=== PATIENT | female | born 1985 | race Caucasian/White ===

== ENCOUNTER 2017-10-04 09:28 | Emergency (ER) | payer OTHER ==
[~2017-10-04] VITALS: Ht 167.6 cm; Wt 133.0 kg
[~2017-10-04 09:28] MED LIST: HYDR-3719; PERC5TAB12 PO
[2017-10-04] MEDS ORDERED: DICY20TA11 (09:36)
[2017-10-04] MEDS ORDERED: ONDA4TAB6 (09:36)
[2017-10-04] MEDS ORDERED: NS 1,000 ML IV ONE (10:45)
[2017-10-04 11:09] LABS: BASO # 0.1 10^3/uL (0.0-0.2); BASO % 0.5 % (0.0-1.0); EOS # 0.1 10^3/uL (0.0-0.50); IMMATURE GRANULOCYTE % 0.3 % (0-0); LYMPH # 2.5 10^3/uL (1.5-4.5); LYMPH % 26.9 % (24.0-44.0); MEAN CORPUSCULAR HEMOGLOBIN 26.4 pg (27.0-33.0); MEAN CORPUSCULAR HGB CONC 34.3 g/dl (32.0-36.5); MEAN CORPUSCULAR VOLUME 76.9 fl (80.0-96.0); MONO # 0.5 10^3/uL (0.0-0.8); NEUTROPHILS # 6.2 10^3/uL (1.8-7.7); NEUTROPHILS % 66.3 % (36.0-66.0); PLATELET COUNT, AUTOMATED 337 10^3/uL (150-450); RED CELL DISTRIBUTION WIDTH 13.9 % (11.5-14.5); WHITE BLOOD COUNT 9.4 10^3/uL (4.0-10.0)
[2017-10-04 11:26] LABS: CONTROL LINE HCG INT CTR LINE PRESENT
[2017-10-04] MEDS ORDERED: ONDANSETRON 4MG/2ML VIAL (J2405) IV ONE (11:30)
[2017-10-04] MEDS ORDERED: MORPHINE 4 MG/ML 1ML SYRINGE IV ONE (11:30)
[2017-10-04 11:33] LABS: ALBUMIN 3.8 GM/DL (3.2-5.2); ALBUMIN/GLOBULIN RATIO 1.09 (1.00-1.93); ALKALINE PHOSPHATASE 65 U/L (45-117); ALT/SGPT 27 U/L (12-78); ANION GAP 7 MEQ/L (8-16); AST/SGOT 12 U/L (7-37); BILIRUBIN,DIRECT 0.1 MG/DL (0.0-0.2); BILIRUBIN,TOTAL 0.7 MG/DL (0.2-1.0); BLOOD UREA NITROGEN 7 MG/DL (7-18); CARBON DIOXIDE LEVEL 28 MEQ/L (21-32); CHLORIDE LEVEL 100 MEQ/L (98-107); CREATININE FOR GFR 0.42 MG/DL (0.55-1.02); GLOMERULAR FILTRATION RATE > 60.0 (>60); GLUCOSE, FASTING 312 MG/DL (70-105); POTASSIUM SERUM 3.5 MEQ/L (3.5-5.1); SODIUM LEVEL 135 MEQ/L (136-145); TOTAL PROTEIN 7.3 GM/DL (6.4-8.2)
--- NOTE | 2017-10-04 12:06 | REP ---
GALLBLADDER ULTRASOUND: 10/04/2017. COMPARISON: Biliary scan 09/30/2017, gallbladder ultrasound 09/28/2017, 09/27/2017. CLINICAL HISTORY: Right upper quadrant pain, known stone, reevaluate after two studies last week. FINDINGS: Sonographic evaluation of the liver shows diffuse hyperechogenicity consistent with fatty infiltration. There is hepatomegaly with a vertical diameter of the liver 20.4 cm in the midclavicular line. No biliary dilatation nor adjacent ascites. No mass or cyst. Gallbladder has a fold in the body near the fundus. There is a small non-mobile stone in that fundus. No wall thickening or pericholecystic fluid. Pancreas is partially obscured by gas shadowing. The visible portions were intact. Right kidney shows no stone or hydronephrosis, unchanged. No generalized ascites. IMPRESSION: 1. Hepatomegaly with fatty infiltration liver. No focal hepatic mass, biliary dilatation or ascites. 2. Common duct 5.7 mm without a filling defect or stone. 3. Gallbladder shows a fold in its body and fundal junction with small mobile stone in the fundus. No wall thickening, mass or pericholecystic fluid. 4. The pancreas seen only in part was grossly intact for those segments visible, gas shadows portions of it. Right kidney intact. Signed by Koko Onofre MD 10/04/2017 01:21 P
--- NOTE | 2017-10-04 12:17 | REP ---
ABDOMINAL SERIES: Four views. HISTORY: Constipation. Abdominal pain. Question obstruction. COMPARISON CHEST X-RAY: November 10, 2012. FINDINGS: Today's upright chest x-ray is normal. There is no evidence of infiltrate or free subdiaphragmatic air. Heart is not enlarged. Supine and erect views of the abdomen show scattered air-fluid levels in the colon without evidence of colonic dilation. No small bowel gas is seen. No mass, organomegaly, or pathologic calcification is seen. Psoas margins and flank stripes are intact. IMPRESSION: Air-fluid levels in the colon question enteritis. No evidence of obstruction or free air. Signed by Josiah Ghosh MD 10/04/2017 03:34 P
[2017-10-04 13:02] LABS: AMYLASE 10 U/L (25-115)
[2017-10-04] MEDS ORDERED: MIRA3350 PO (13:56)
[2017-10-04] MEDS ORDERED: METF500T13 PO (13:56)
[2017-10-04] MEDS ORDERED: NORCOTAB PO (13:56)
[2017-10-04] MEDS ORDERED: DULC10SU2 PR (13:56)
[2017-10-04] MEDS ORDERED: IBUP-1022 PO (13:56)
[2017-10-04] MEDS ORDERED: BLOOKIT20 XX (14:01)
[2017-10-04 14:06] VITALS: BP 171/98
--- NOTE | 2017-10-04 16:02 | ED PDOC ---
Post-Departure Follow-Up radiology report faxed to Keri Camacho MD Oct 04, 2017 16:02
== END 2017-10-04 14:13 | disposition home or self-care (01) ==
LOC: M ED 09:28
DX: K80.70 Calculus of gallbladder and bile duct without cholecystitis without obstruction (principal); E11.65 Type 2 diabetes mellitus with hyperglycemia; Z72.0 Tobacco use
CPT/HCPCS: 74022; 76705; 80048; 80076; 81001; 82150; 83036; 83690; 84703; 85025; 99284; J2405

== ENCOUNTER 2017-10-08 12:41 | Day surgery (SDC) | payer OTHER ==
[~2017-10-08] VITALS: Ht 170.2 cm; Wt 129.7 kg
[~2017-10-08 12:41] MED LIST changes: +BLOOKIT20 XX; +DICY20TA11; +DULC10SU2 PR; +IBUP-1022 PO; +METF500T13 PO; +MIRA3350 PO; +NORCOTAB PO; +ONDA4TAB6
[2017-10-08] MEDS ORDERED: LR 1,000 ML IV ONE (13:00)
[2017-10-08] MEDS ORDERED: HumaLOG INSULIN (NovoLOG) PER UNIT SC ONE (14:15)
[2017-10-08 14:20] LABS: CONTROL LINE UCG INT CTR LINE PRESENT
[2017-10-08] MEDS ORDERED: PERCOCET 5MG/325MG TAB As Ordered ONE (14:23)
[2017-10-08] MEDS ORDERED: PERCOCET 5MG/325MG TAB PO ONE (14:30)
[2017-10-08] MEDS ORDERED: fentaNYL 100 MCG/2 ML INJECTION (J3010) As Ordered ONE ×2 (15:50→16:33)
[2017-10-08] MEDS ORDERED: MIDAZOLAM INJ 2 MG/2 ML VIAL (J2250) As Ordered ONE (15:50)
[2017-10-08] MEDS ORDERED: BUPIVACAINE/EPIN 0.25% 30 ML VIAL As Ordered ONE (16:04)
[2017-10-08] MEDS ORDERED: DESFLURANE 240 ML INHALANT As Ordered ONE (16:40)
[2017-10-08] MEDS ORDERED: LIDOCAINE 2% INJ 100 MG/5 ML SDV (FOR ANES.) As Ordered ONE (16:57)
[2017-10-08] MEDS ORDERED: dexameTHASONE 4 MG/ML 1ML VIAL (J1100) As Ordered ONE (16:57)
[2017-10-08] MEDS ORDERED: KETOROLAC 60 MG/2 ML VIAL (J1885) As Ordered ONE (16:57)
[2017-10-08] MEDS ORDERED: GLYCOPYRROLATE INJ 0.2 MG/ML 2 ML VIAL As Ordered ONE (16:57)
[2017-10-08] MEDS ORDERED: ONDANSETRON 4MG/2ML VIAL (J2405) As Ordered ONE ×2 (16:57→17:33)
[2017-10-08] MEDS ORDERED: PROPOFOL 200 MG/20 ML VIAL As Ordered ONE (16:57)
[2017-10-08] MEDS ORDERED: ROCURONIUM BROMIDE 50 MG/5 ML VIAL/SYRINGE As Ordered ONE (16:57)
[2017-10-08] MEDS ORDERED: SUGAMMADEX SODIUM 500 MG/5 ML VIAL (BRIDION) As Ordered ONE (16:58)
[2017-10-08] MEDS ORDERED: HYDROmorphone HCL 2 MG/ML 1ML VIAL (J1170) As Ordered ONE (17:02)
[2017-10-08] MEDS ORDERED: HYDROmorphone HCL 1 MG/ML SYRINGE (J1170) IV PRN (17:45)
[2017-10-08] MEDS ORDERED: LR 1,000 ML IV SCH (17:45)
[2017-10-08] MEDS ORDERED: PERCOCET 5MG/325MG TAB PO PRN (17:45)
[2017-10-08] MEDS ORDERED: ONDANSETRON 4MG/2ML VIAL (J2405) IV PRN (17:45)
[2017-10-08] MEDS ORDERED: METOCLOPRAMIDE INJ 10MG/2ML VIAL (J2765) IV PRN (17:45)
[2017-10-08] MEDS ORDERED: NORCO, ANEXSIA 5/325MG TABLET (HYDROcodone/ACETAMINOPHEN) PO PRN (17:45)
[2017-10-08] MEDS: fentaNYL 100 MCG/2 ML INJECTION (J3010) IV PRN ×2 (17:55→18:06)
[2017-10-08 19:20] VITALS: BP 139/85
--- NOTE | 2017-10-10 09:26 | RO ---
DATE OF PROCEDURE: 10/08/2017 PREOPERATIVE DIAGNOSIS: Symptomatic cholelithiasis. POSTOPERATIVE DIAGNOSIS: Symptomatic cholelithiasis. PROCEDURE: Laparoscopic cholecystectomy. SURGEON: Dr. Estrada SUPERVISOR PROP MAKING: None. ANESTHESIA: General. ESTIMATED BLOOD LOSS: 5. COMPLICATIONS: None. INDICATIONS FOR PROCEDURE: The patient 31-year-old female who presents with a history of right upper quadrant abdominal pain for the past couple weeks, found to have symptomatic cholelithiasis. Recommendation was to proceed with laparoscopic, possible open cholecystectomy. Risks, benefits of the procedure, not limited to, but including bleeding, infection, hernia formation, damage to surrounding structures, need for further surgery were discussed in detail with the patient. Informed consent was obtained and the procedure was planned. DESCRIPTION OF PROCEDURE: The patient was brought back to operating room #6. After sufficient sedation, the abdomen was sterilely prepped and draped. Next, a time-out was done to confirm proper patient and proper procedure. Next, a stab incision was made in the left lower quadrant at Aparicio's point. Veress needle was inserted and the abdomen was insufflated to 50 mmHg. Next, a 5 mm supraumbilical incision was made. A 5 mm Optiview port was used to gain access to the abdomen. Once the abdomen was entered, Veress needle site was examined and there were no signs of any injury. 11 mm port placed subxiphoid, two 5 mm ports in the upper quadrant. The fundus of the gallbladder was grasped, elevated up towards the right shoulder, cystic duct and cystic artery were carefully dissected using blunt dissection. Once they are both clearly identified, they are both doubly clipped and cut. The gallbladder was then removed from the gallbladder fossa using electrocautery. Once the gallbladder was out, it was taken out through a 10 mm EndoCatch bag through subxiphoid port site. The upper quadrant was then examined to confirm hemostasis. The abdomen was then desufflated. Skin incision closed with #4-0 Vicryl subcuticular sutures. The abdomen was cleaned and dried. Steri-Strips, 4x4 and tape were applied, thus ending procedure.
== END 2017-10-08 19:30 | disposition home or self-care (01) ==
LOC: M SDC 12:41
PROVIDERS: ATTEND Surgery
DX: K80.20 Calculus of gallbladder without cholecystitis without obstruction (principal); E11.9 Type 2 diabetes mellitus without complications; K21.9 Gastro-esophageal reflux disease without esophagitis; F17.210 Nicotine dependence, cigarettes, uncomplicated; Z79.899 Other long term (current) drug therapy
CPT/HCPCS: 47562; 84703; 88304; J0690; J1100; J1170; J1885; J2250; J2405; J3010

== ENCOUNTER → 2017-12-21 | Outpatient (REF) | payer OTHER | LOC: M LAB REF 12:40 | DX: L72.3 Sebaceous cyst (principal) ==

== ENCOUNTER → 2018-09-23 | Outpatient (CLI) | payer OTHER ==
[2018-09-23 11:53] LABS: BASO # 0.1 10^3/uL (0.0-0.2); BASO % 0.5 % (0.0-1.0); EOS # 0.2 10^3/uL (0.0-0.50); EOS % 1.3 % (0.0-3.0); HEMATOCRIT 48.4 % (36.0-47.0); HEMOGLOBIN 16.4 g/dl (12.0-15.5); IMMATURE GRANULOCYTE % 0.3 % (0-3.0); LYMPH # 3.3 10^3/uL (1.5-4.5); LYMPH % 23.7 % (24.0-44.0); MEAN CORPUSCULAR HEMOGLOBIN 27.4 pg (27.0-33.0); MEAN CORPUSCULAR HGB CONC 33.9 g/dl (32.0-36.5); MEAN CORPUSCULAR VOLUME 80.9 fl (80.0-96.0); MONO # 0.6 10^3/uL (0.0-0.8); MONO % 4.3 % (0.0-5.0); NEUTROPHILS # 9.8 10^3/uL (1.8-7.7); NEUTROPHILS % 69.9 % (36.0-66.0); PLATELET COUNT, AUTOMATED 254 10^3/uL (150-450); RED BLOOD COUNT 5.98 10^6/uL (4.00-5.40); RED CELL DISTRIBUTION WIDTH 13.8 % (11.5-14.5); WHITE BLOOD COUNT 14.1 10^3/uL (4.0-10.0)
[2018-09-23 12:28] LABS: ESTIMATED AVERAGE GLUCOSE 249 MG/DL (60-110); HEMOGLOBIN A1c 10.3 %
[2018-09-23 13:01] LABS: CREATININE, URINE 84.5 MG/DL; MALB URINE SIEMENS 42.7 MG/L
[2018-09-23 13:04] LABS: MAU/CREAT RATIO 50.5 MCG/MG (0.0-30.0)
[2018-09-23 16:13] LABS: ALBUMIN 3.8 GM/DL (3.2-5.2); ALBUMIN/GLOBULIN RATIO 1.23 (1.00-1.93); ALKALINE PHOSPHATASE 84 U/L (45-117); ALT/SGPT 23 U/L (12-78); ANION GAP 8 MEQ/L (8-16); AST/SGOT 8 U/L (7-37); BILIRUBIN,TOTAL 0.5 MG/DL (0.2-1.0); BLOOD UREA NITROGEN 9 MG/DL (7-18); CALCIUM LEVEL 9.2 MG/DL (8.5-10.1); CARBON DIOXIDE LEVEL 29 MEQ/L (21-32); CHLORIDE LEVEL 101 MEQ/L (98-107); CHOLESTEROL LEVEL 165 MG/DL (<200); CHOLESTEROL RISK RATIO 6.875 (<5); CREATININE FOR GFR 0.51 MG/DL (0.55-1.30); GLOMERULAR FILTRATION RATE > 60.0 (>60); GLUCOSE, FASTING 362 MG/DL (70-100); HDL CHOLESTEROL 24 MG/DL (>40); LDL CHOLESTEROL 99 MG/DL (<100); NON-HDL-C 141 MG/DL; POTASSIUM SERUM 4.9 MEQ/L (3.5-5.1); SODIUM LEVEL 138 MEQ/L (136-145); TOTAL PROTEIN 6.9 GM/DL (6.4-8.2); TRIGLYCERIDES LEVEL 208 MG/DL (<150)
== END ==
LOC: M SMT 08:20
DX: E11.9 Type 2 diabetes mellitus without complications (principal)
CPT/HCPCS: 80053

== ENCOUNTER → 2019-02-16 | Outpatient (REF) | payer OTHER ==
[~2019-02-16] MED LIST changes: -BLOOKIT20 XX; +BLOOKIT21 XX
[2019-02-16 11:42] LABS: BASO # 0.1 10^3/uL (0.0-0.2); BASO % 0.3 % (0.0-1.0); EOS # 0.2 10^3/uL (0.0-0.50); EOS % 1.1 % (0.0-3.0); HEMATOCRIT 46.6 % (36.0-47.0); HEMOGLOBIN 15.9 g/dl (12.0-15.5); LYMPH # 2.8 10^3/uL (1.5-4.5); LYMPH % 18.5 % (24.0-44.0); MEAN CORPUSCULAR HEMOGLOBIN 27.9 pg (27.0-33.0); MEAN CORPUSCULAR HGB CONC 34.1 g/dl (32.0-36.5); MEAN CORPUSCULAR VOLUME 81.9 fl (80.0-96.0); MONO # 0.6 10^3/uL (0.0-0.8); NEUTROPHILS # 11.5 10^3/uL (1.8-7.7); NEUTROPHILS % 75.8 % (36.0-66.0); PLATELET COUNT, AUTOMATED 306 10^3/uL (150-450); RED BLOOD COUNT 5.69 10^6/uL (4.00-5.40); WHITE BLOOD COUNT 15.2 10^3/uL (4.0-10.0)
[2019-02-16 11:58] LABS: ALBUMIN 3.7 GM/DL (3.2-5.2); ALT/SGPT 30 U/L (12-78); BILIRUBIN,TOTAL 1.1 MG/DL (0.2-1.0); BLOOD UREA NITROGEN 12 MG/DL (7-18); CALCIUM LEVEL 8.7 MG/DL (8.5-10.1); CARBON DIOXIDE LEVEL 24 MEQ/L (21-32); CHLORIDE LEVEL 105 MEQ/L (98-107); CHOLESTEROL LEVEL 85 MG/DL (<200); CHOLESTEROL RISK RATIO 3.863 (<5); CREATININE FOR GFR 0.54 MG/DL (0.55-1.30); GLOMERULAR FILTRATION RATE > 60.0 (>60); GLUCOSE, FASTING 341 MG/DL (70-100); HDL CHOLESTEROL 22 MG/DL (>40); LDL CHOLESTEROL 21 MG/DL (<100); NON-HDL-C 63 MG/DL; POTASSIUM SERUM 4.4 MEQ/L (3.5-5.1); SODIUM LEVEL 136 MEQ/L (136-145); TRIGLYCERIDES LEVEL 212 MG/DL (<150)
[2019-02-16 12:14] LABS: HEMOGLOBIN A1c 9.5 %
== END ==
LOC: M SFHCCLAY 07:42
PROVIDERS: ATTEND Nurse Practitioner Family
DX: E11.9 Type 2 diabetes mellitus without complications (principal)

== ENCOUNTER → 2019-07-03 | Outpatient (REF) | payer OTHER ==
[~2019-07-03] MED LIST changes: +HYDR-3715 PO; -NORCOTAB PO
[2019-07-04 13:48] LABS: ALBUMIN 3.8 GM/DL (3.2-5.2); ALT/SGPT 22 U/L (12-78); BILIRUBIN,TOTAL 0.7 MG/DL (0.2-1.0); BLOOD UREA NITROGEN 13 MG/DL (7-18); CALCIUM LEVEL 9.4 MG/DL (8.5-10.1); CARBON DIOXIDE LEVEL 29 MEQ/L (21-32); CHLORIDE LEVEL 105 MEQ/L (98-107); CHOLESTEROL LEVEL 88 MG/DL (<200); CHOLESTEROL RISK RATIO 3.666 (<5); CREATININE FOR GFR 0.57 MG/DL (0.55-1.30); GLOMERULAR FILTRATION RATE > 60.0 (>60); GLUCOSE, FASTING 208 MG/DL (70-100); HDL CHOLESTEROL 24 MG/DL (>40); LDL CHOLESTEROL 16 MG/DL (<100); NON-HDL-C 64 MG/DL; POTASSIUM SERUM 4.1 MEQ/L (3.5-5.1); SODIUM LEVEL 139 MEQ/L (136-145); TRIGLYCERIDES LEVEL 238 MG/DL (<150)
[2019-07-04 13:58] LABS: HEMOGLOBIN A1c 7.9 %
== END ==
LOC: M SFHCCLAY 15:46
PROVIDERS: ATTEND Nurse Practitioner Family
DX: E11.9 Type 2 diabetes mellitus without complications (principal)

== ENCOUNTER → 2019-07-10 | Outpatient (CLI) | payer OTHER ==
--- NOTE | 2019-07-10 12:10 | REP ---
REASON: Acute knee pain. No trauma. No priors. There is minimal tricompartmental osteophytosis. The medial and lateral compartments are relatively well-maintained. There is evidence of mild patellofemoral joint space narrowing. There is no acute fracture. IMPRESSION: Chronic changes. Soft tissue calcifications are seen in the anterior subcutanea, consistent with chronic changes. Electronically Signed by Raghav Sanchez DO 07/10/2019 12:50 P
== END ==
LOC: M SMT 10:47
PROVIDERS: ATTEND Nurse Practitioner Family
DX: M25.561 Pain in right knee (principal)

== ENCOUNTER → 2020-07-31 | Outpatient (CLI) | payer OTHER ==
[~2020-07-31] MED LIST changes: +ALLE180T33 PO; +ATOR40TA75 PO; +HYDR-3713 PO; +IBUP80TA PO; +METF-839 PO; +MULT-90 PO; +OXYC1TAB23 PO; +SPIR50TA4 PO; +VICO10TA11 PO; +VICT18IN SC; +VITA100T59 PO
[2020-07-31 13:57] LABS: HEMATOCRIT 49.7 % (36.0-47.0); HEMOGLOBIN 16.1 g/dl (12.0-15.5); MEAN CORPUSCULAR HEMOGLOBIN 26.8 pg (27.0-33.0); MEAN CORPUSCULAR HGB CONC 32.4 g/dl (32.0-36.5); MEAN CORPUSCULAR VOLUME 82.8 fl (80.0-96.0); PLATELET COUNT, AUTOMATED 293 10^3/uL (150-450); WHITE BLOOD COUNT 14.2 10^3/uL (4.0-10.0)
[2020-07-31 14:04] LABS: THYROID STIMULATING HORMONE 1.09 uIU/ML (0.358-3.740)
[2020-07-31 14:11] LABS: PROLACTIN 3.1 NG/ML
== END ==
LOC: M PLALAB 10:54
PROVIDERS: ATTEND Obstetrics & Gynecology
DX: N93.9 Abnormal uterine and vaginal bleeding, unspecified (principal)

== ENCOUNTER → 2020-08-01 | Outpatient (CLI) | payer OTHER ==
--- NOTE | 2020-08-27 15:05 | REP ---
PELVIC ULTRASOUND CLINICAL: Abnormal uterine bleeding and pelvic pain. TECHNIQUE: Transabdominal pelvic ultrasound followed by transvaginal examination for better evaluation of the endometrium and adnexa with color Doppler evaluation of the ovaries. FINDINGS: The bladder is normal and measures 8.6 x 9.3 x 5.3 cm. Anteverted uterus measures 9.5 x 4.8 x 5.0 cm. The endometrial complex measures 8.7 mm in thickness and there is suggestion for a 1.5 cm anterior intramural fibroid versus heterogeneous myometrium. No other uterine abnormalities are identified. The bilateral ovaries are normal in appearance and vascularity without torsion. Right ovary measures 4.1 x 1.7 x 2.1 cm (RI 0.53). Left ovary measures 3.0 x 3.5 x 2.0 cm (RI 0.48). No pelvic fluid or adnexal mass lesion. IMPRESSION: * THe uterus is markedly heterogenous and there is a possible 1.5 cm anterior intramural fibroid. * Otherwise normal pelvic ultrasound. MTDD
== END ==
LOC: M WHC 13:14
PROVIDERS: ATTEND Obstetrics & Gynecology
DX: N93.9 Abnormal uterine and vaginal bleeding, unspecified (principal); N85.4 Malposition of uterus

== ENCOUNTER → 2020-08-27 | Outpatient (REF) | payer OTHER | LOC: M SFHCWAGY 17:14 | PROVIDERS: ATTEND Obstetrics & Gynecology | DX: Z12.4 Encounter for screening for malignant neoplasm of cervix (principal) | CPT/HCPCS: 87624; 88305; G0123 ==

== ENCOUNTER → 2020-09-13 | Outpatient (CLI) | payer OTHER | LOC: M LABSMTC 10:27 | PROVIDERS: ATTEND Anesthesiology | DX: Z01.812 Encounter for preprocedural laboratory examination (principal); Z20.828 Contact with and (suspected) exposure to other viral communicable diseases | CPT/HCPCS: C9803; U0003 ==

== ENCOUNTER 2020-09-18 09:55 | Day surgery (SDC) | payer OTHER ==
[~2020-09-18] VITALS: Ht 175.3 cm; Wt 125.1 kg
[~2020-09-18 09:55] MED LIST changes: -HYDR-3713 PO; -IBUP80TA PO; +LR 1,000 ML IV ONE; -METF-839 PO; -OXYC1TAB23 PO; -VICO10TA11 PO; +ceFAZolin SOD 2 GM in IV 1 EA IV ONE
[2020-09-18 10:27] LABS: HEMATOCRIT 48.8 % (36.0-47.0); HEMOGLOBIN 15.6 g/dl (12.0-15.5); MEAN CORPUSCULAR HEMOGLOBIN 25.6 pg (27.0-33.0); MEAN CORPUSCULAR VOLUME 80.1 fl (80.0-96.0); PLATELET COUNT, AUTOMATED 289 10^3/uL (150-450); RED BLOOD COUNT 6.09 10^6/uL (4.00-5.40); WHITE BLOOD COUNT 10.5 10^3/uL (4.0-10.0)
[2020-09-18] MEDS ORDERED: MIDAZOLAM INJ 2MG/2ML VIAL (J2250 PER 1MG) As Ordered ONE ×2 (11:33→12:21)
[2020-09-18] MEDS ORDERED: HumaLOG INSULIN (NovoLOG) PER UNIT As Ordered ONE ×2 (11:38→16:14)
[2020-09-18] MEDS ORDERED: MIDAZOLAM INJ 2MG/2ML VIAL (J2250 PER 1MG) IV PRN (11:45)
[2020-09-18] MEDS ORDERED: METHYLENE BLUE 0.5% (5MG/ML) 10 ML AMP (PROVAYBLUE) As Ordered ONE (11:52)
--- NOTE | 2020-09-18 12:15 | ROOPDOC ---
[facility] Report Of Operation Report of Operation DATE OF PROCEDURE: 09/18/20 PREPROCEDURE DIAGNOSES: 1. Abnormal uterine bleeding. POSTPROCEDURE DIAGNOSES: 1. Abnormal uterine bleeding. PROCEDURES PERFORMED: 1. Robotic-assisted laparoscopic hysterectomy. 2. Bilateral salpingectomy. 3. Cystoscopy. SURGEON: Elver Coronado MD REPAIR TABLE OPERATOR: PEPITO Colon ANESTHESIA: General endotracheal anesthesia. ESTIMATED BLOOD LOSS: 50 mL. INTRAVENOUS FLUIDS: 1000 mL lactated Ringer solution. URINE OUTPUT: 100 mL. PREPROCEDURE ANTIBIOTICS: 2g Ancef OPERATIVE FINDINGS: The patient with normal-appearing bilateral adnexa and uterus. CYSTOSCOPIC FINDING: Normal bladder mucosa, no foreign objects. Bilateral ureteral jets were observed. SPECIMEN: Uterus, cervix, bilateral fallopian tubes DESCRIPTION OF PROCEDURE: After informed consent was obtained and written consent was reviewed, the patient was brought to the operating room, where general endotracheal anesthesia was obtained. She was then placed in lithotomy position, was prepped and draped in a normal sterile fashion. A time-out in the operating room was then performed, identifying the patient, procedure to be performed, as well as drug allergies. A speculum was then placed, revealing the cervix. The anterior and posterior aspects of the cervix were stitched with a 0 Vicryl. The uterus was then sounded to 9cm. A large Receept uterine manipulator was then advanced through the cervical os for means to manipulate the uterus. The cervical cap was applied over the cervix, as well as the vaginal sleeve applied into the vagina. The speculum was removed from the patients vagina. A Hollins catheter was then placed and set to gravity. Gloves were changed, and attention was turned to the patients abdomen, where a Veress needle was placed through the umbilicus. A pneumoperitoneum was then obtained with CO2 gas. The supraumbilical area was infused with 0.25% Marcaine. An incision was made in this area, and a 8 mm trocar and sleeve was advanced through this incision. The laparoscope was then replaced, revealing intra-abdominal placement. Three additional port sites were placed, two to the left side of the patient's abdomen and one to the right. These areas was infused with 0.25% Marcaine. Each one of these areas, incisions were made, and 8 mm trocars and sleeves advanced through each one of these incisions under direct visualization. Next, the da Eunice was then docked, utilizing a camera arm and two operative arms. The patient's abdomen was then surveyed with the above-noted finding. Bilateral salpingectomies were then performed. The fallopian tubes' mesosalpinx was cauterized and ligated with hemostasis noted. Next, the uteroovarian ligaments bilateral were cauterized and ligated with good hemostasis noted. The round ligaments bilaterally were cauterized and ligated with good hemostasis noted. The anterior and posterior aspects of broad ligaments were . The anterior leaf of the broad ligament was cauterized and ligated and dissected along the bladder, creating a bladder flap. The remainder of the broad and cardinal ligaments were then cauterized and ligated with good hemostasis noted. The uterine arteries were skeletonized bilaterally and were cauterized and transected with good hemostasis noted. Anterior and posterior colpotomies were made using monopolar scissors. The uterus was then brought out through the vaginal incision. The surgical sites were inspected and noted to be hemostatic. The vaginal cuff was then closed using 2-0 V-Loc system in a running fashion. Hortencia was then applied over the surgical field. The pneumoperitoneum was then released. Next, the cystoscopy was then performed. Utilizing a 70-degree cystoscope, it was advanced transurethrally through the bladder. The bladder was surveyed, showing normal bladder mucosa, no foreign bodies. The bilateral ureteral jets were observed. The cystoscope was then removed. The bladder was then drained. Gloves were changed. Attention was then turned to the patients abdomen, where all four port sites were closed with 4-0 Monocryl and dressed with Dermabond. The patient was then taken out of lithotomy position and was awakened from general anesthesia and taken to recovery in stable condition. Counts were correct. Briseida Vasquze, my surgical training specialist, played a central role in the operation. She assisted with port placement, tissue retraction and identification, as well as wound closure. ELVER CORONADO MD. Sep 18, 2020 12:15
[2020-09-18] MEDS ORDERED: OXYC1TAB23 PO (12:18)
[2020-09-18] MEDS ORDERED: ONDANSETRON 4MG/2ML VIAL As Ordered ONE (12:21)
[2020-09-18] MEDS ORDERED: propofoL 200 MG/20 ML VIAL As Ordered ONE (12:21)
[2020-09-18] MEDS ORDERED: dexameTHASONE 4 MG/ML 1ML VIAL (J1100 PER 1MG) As Ordered ONE (12:21)
[2020-09-18] MEDS ORDERED: fentaNYL 100 MCG/2 ML INJECTION (J3010) As Ordered ONE (12:21)
[2020-09-18] MEDS ORDERED: SUGAMMADEX SODIUM 500 MG/5 ML VIAL (BRIDION) As Ordered ONE (12:21)
[2020-09-18] MEDS ORDERED: HYDROmorphone HCL 2 MG/ML 1ML VIAL (J1170) As Ordered ONE (12:21)
[2020-09-18] MEDS ORDERED: LIDOCAINE 2% 100MG/5ML SDV (FOR ANES.) As Ordered ONE (12:21)
[2020-09-18] MEDS ORDERED: ROCURONIUM BROMIDE 50 MG/5 ML VIAL As Ordered ONE ×2 (12:21→13:15)
[2020-09-18] MEDS ORDERED: ACETAMINOPHEN 1000MG 100ML IV BTL (OFIRMEV) (J0131 PER 10MG) As Ordered ONE (13:51)
[2020-09-18] MEDS: BUPIVACAINE HCL 0.25% 30ML VIAL As Ordered ONE ×2 (14:14→14:15)
[2020-09-18] MEDS ORDERED: KETOROLAC 30 MG/ML 1ML VIAL IV SCH (15:00)
[2020-09-18] MEDS ORDERED: fentaNYL 100 MCG/2 ML INJECTION (J3010) IV PRN (15:00)
[2020-09-18] MEDS ORDERED: LR 1,000 ML IV SCH ×2 (15:00)
[2020-09-18] MEDS ORDERED: oxyCODONE 5MG TAB PO PRN (15:00)
[2020-09-18] MEDS ORDERED: ONDANSETRON 4MG/2ML VIAL IV PRN (15:00)
[2020-09-18] MEDS ORDERED: MORPHINE 4 MG/ML 1ML VIAL/SYRINGE (J2270) IV PRN (15:15)
[2020-09-18] MEDS ORDERED: PROMETHAZINE INJ 25 MG/ML VIAL (J2550) IV PRN (15:15)
[2020-09-18] MEDS ORDERED: PERCOCET 5MG/325MG TAB PO PRN ×2 (15:15)
[2020-09-18] MEDS: HYDROMORPHONE HCL 0.5 MG/ 0.5 ML SYRINGE (J1170 PER 1) IV PRN ×2 (15:31→15:37)
[2020-09-18] MEDS ORDERED: HumaLOG INSULIN (NovoLOG) PER UNIT SC ONE ×2 (16:45)
[2020-09-18 17:28] LABS: HEP C VIRUS AB INDEX SOURCE PT 0.1 INDEX (0.0-0.8); HEPATITIS B SURFACE ANTIGEN NEGATIVE (NEGATIVE)
[2020-09-18 17:40] VITALS: BP 121/70
[2020-09-18 18:01] LABS: HIV SCREEN CENTAUR SOURCE NEGATIVE (NEGATIVE)
== END 2020-09-18 17:40 | disposition home or self-care (01) ==
LOC: M SDC 09:55
PROVIDERS: ATTEND Obstetrics & Gynecology
DX: N93.9 Abnormal uterine and vaginal bleeding, unspecified (principal); D25.9 Leiomyoma of uterus, unspecified; N72 Inflammatory disease of cervix uteri; E11.9 Type 2 diabetes mellitus without complications; F43.10 Post-traumatic stress disorder, unspecified; Z79.84 Long term (current) use of oral hypoglycemic drugs; Z79.899 Other long term (current) drug therapy; E78.5 Hyperlipidemia, unspecified; F17.218 Nicotine dependence, cigarettes, with other nicotine-induced disorders; Z91.040 Latex allergy status; Z91.018 Allergy to other foods; G43.909 Migraine, unspecified, not intractable, without status migrainosus
CPT/HCPCS: 36415; 58571; 85027; 86803; 86850; 86900; 86901; 87340; 87389; 88307; J0131; J1100; J1170; J1885; J2250; J2405; J3010; S2900

== ENCOUNTER 2020-09-29 18:34 | Day surgery (SDC) | payer OTHER ==
[~2020-09-29] VITALS: Ht 175.3 cm; Wt 123.7 kg
[~2020-09-29 18:34] MED LIST changes: -LR 1,000 ML IV ONE; +OXYC1TAB23 PO; -ceFAZolin SOD 2 GM in IV 1 EA IV ONE
[2020-09-29] MEDS ORDERED: NS 1,000 ML IV ONE (19:00)
[2020-09-29 19:24] LABS: BASO # 0.1 10^3/uL (0.0-0.2); BASO % 0.4 % (0.0-1.0); EOS # 0.3 10^3/uL (0.0-0.5); EOS % 1.9 % (0.0-3.0); HEMOGLOBIN 15.2 g/dl (12.0-15.5); LYMPH # 3.2 10^3/uL (1.5-5.0); LYMPH % 23.6 % (24.0-44.0); MEAN CORPUSCULAR HEMOGLOBIN 25.6 pg (27.0-33.0); MEAN CORPUSCULAR HGB CONC 32.3 g/dl (32.0-36.5); MEAN CORPUSCULAR VOLUME 79.3 fl (80.0-96.0); MONO # 0.5 10^3/uL (0.0-0.8); NEUTROPHILS # 9.3 10^3/uL (1.5-8.5); NEUTROPHILS % 69.7 % (36.0-66.0); PLATELET COUNT, AUTOMATED 280 10^3/uL (150-450); RED BLOOD COUNT 5.93 10^6/uL (4.00-5.40); WHITE BLOOD COUNT 13.4 10^3/uL (4.0-10.0)
[2020-09-29 19:34] LABS: INR 0.97; PROTHROMBIN TIME 13.1 SECONDS (12.5-14.3)
[2020-09-29 19:35] LABS: PARTIAL THROMBOPLASTIN TIME 27.5 SECONDS (24.2-38.5)
[2020-09-29] MEDS ORDERED: ISOVUE-370 76% 100ML VIAL As Ordered ONE (19:47)
--- NOTE | 2020-09-29 20:14 | REPVR ---
PROCEDURE INFORMATION: Exam: CT Abdomen And Pelvis With Contrast Exam date and time: 09/29/2020 7:32 PM Age: 34 years old Clinical indication: Other: Bleeding; Prior surgery; Surgery date: 3-7 days post-operative; Surgery type: Hysterectomy; Additional info: Heavy vag bleeding, hyster 09/18 TECHNIQUE: Imaging protocol: Computed tomography of the abdomen and pelvis with intravenous contrast. Radiation optimization: All CT scans at this facility use at least one of these dose optimization techniques: automated exposure control; mA and/or kV adjustment per patient size (includes targeted exams where dose is matched to clinical indication); or iterative reconstruction. Contrast material: ISOVUE 370; Contrast volume: 100 ml; Contrast route: INTRAVENOUS (IV); COMPARISON: CT ABD/PEL W/IV CONTRAST ONLY 09/28/2017 6:04 PM FINDINGS: Liver: There is a diffuse decrease in hepatic parenchymal density, consistent with steatosis. Hepatomegaly. Gallbladder and bile ducts: There has been a cholecystectomy. Pancreas: Normal. No ductal dilation. Spleen: There is mild splenomegaly with a maximum span of 14 centimeters. No focal abnormalities demonstrated. Adrenal glands: Normal. No mass. Kidneys and ureters: Normal. No hydronephrosis. Stomach and bowel: Unremarkable. No obstruction. No mucosal thickening. Appendix: No evidence of appendicitis. Intraperitoneal space: Unremarkable. No free air. No significant fluid collection. Vasculature: Unremarkable. No abdominal aortic aneurysm. Lymph nodes: Unremarkable. No enlarged lymph nodes. Urinary bladder: Unremarkable as visualized. Reproductive: There has been a hysterectomy. Increased density in the upper vagina near the vaginal cuff may represent an intravaginal hematoma. Bones/joints: Unremarkable. No acute fracture. Soft tissues: Unremarkable. IMPRESSION: 1. There has been a cholecystectomy. 2. There has been a hysterectomy. 3. Increased density in the upper vagina near the vaginal cuff may represent an intravaginal hematoma. 4. There is mild splenomegaly with a maximum span of 14 centimeters. No focal abnormalities demonstrated. 5. There is a diffuse decrease in hepatic parenchymal density, consistent with steatosis. Hepatomegaly. Electronically signed by: Hermilo Nash On 09/29/2020 20:14:11 PM
[2020-09-29] MEDS ORDERED: METF-839 PO (21:10)
[2020-09-29] MEDS ORDERED: IBUP80TA PO (21:11)
[2020-09-29] MEDS ORDERED: MIDAZOLAM INJ 2MG/2ML VIAL (J2250 PER 1MG) As Ordered ONE ×2 (22:08→22:50)
[2020-09-29] MEDS ORDERED: CHLOROPROCAINE PRES. FREE 3% 20ML VIAL As Ordered ONE (22:09)
[2020-09-29] MEDS ORDERED: HYDROMORPHONE HCL 0.5 MG/ 0.5 ML SYRINGE (J1170 PER 1) IV PRN (23:30)
[2020-09-29] MEDS ORDERED: ONDANSETRON 4MG/2ML VIAL IV PRN (23:30)
[2020-09-29] MEDS ORDERED: fentaNYL 100 MCG/2 ML INJECTION (J3010) IV PRN (23:30)
[2020-09-29] MEDS ORDERED: LR 1,000 ML IV SCH (23:30)
[2020-09-29] MEDS ORDERED: oxyCODONE 5MG TAB PO PRN (23:30)
[2020-09-29] MEDS ORDERED: HumaLOG INSULIN (NovoLOG) PER UNIT SC PRN (23:30)
[2020-09-29] MEDS ORDERED: HumaLOG INSULIN (NovoLOG) PER UNIT As Ordered ONE (23:44)
--- NOTE | 2020-09-29 23:47 | ROOPDOC ---
[facility] Report Of Operation Report of Operation DATE OF PROCEDURE: 09/29/20 PREPROCEDURE DIAGNOSES: vaginal bleeding s/p hysterectomy. POSTPROCEDURE DIAGNOSES: same, partial dehiscence of vaginal cuff PROCEDURE: repair vaginal cuff. SURGEON: Nia Chase MD ANESTHESIA: Spinal. ESTIMATED BLOOD LOSS: Approximately 100 mL. COMPLICATIONS: none. FINDINGS: 1 cm separation of vaginal cuff at left corner with active bleeding. PROCEDURE NOTE: Pt was taken to the operating room where spinal anesthesia was induced. She was prepped and draped in a sterile fashion in the dorsal lithotomy position. A speculum was placed. An Desiree clamp was used to grasp the left corner of the vagina. A 3-O Vicryl suture was used to reapproximate the anterior and posterior sides of the vaginal cuff in a running, locked fashion. Good hemostasis was observed. All instruments were removed. NIA CHASE MD Sep 29, 2020 23:47
[2020-09-30] MEDS ORDERED: LR 1,000 ML IV SCH
[2020-09-30] MEDS ORDERED: IBUPROFEN 800 MG TAB PO ONE
[2020-09-30] MEDS ORDERED: ACETAMINOPHEN 500 MG TAB PO ONE
[2020-09-30 00:30] VITALS: BP 138/94
[2020-09-30 01:00] VITALS: BP 139/96
[2020-10-03] MEDS ORDERED: OXYC1TAB23 PO (08:39)
[2020-10-03] MEDS ORDERED: VICO10TA11 PO (14:29)
[2020-10-03] MEDS ORDERED: HYDR-3713 PO (15:13)
== END 2020-09-30 02:13 | disposition home or self-care (01) ==
LOC: M ED 18:34 → M SDC 21:08 → ENRESERV 21:39 → M MSPAV 09-30 00:18 → M SDC 09-30 02:13
PROVIDERS: ATTEND Specialist
DX: T81.30XA Disruption of wound, unspecified, initial encounter (principal); N93.8 Other specified abnormal uterine and vaginal bleeding; E78.49 Other hyperlipidemia; E11.9 Type 2 diabetes mellitus without complications; F41.9 Anxiety disorder, unspecified; K21.9 Gastro-esophageal reflux disease without esophagitis; Z79.84 Long term (current) use of oral hypoglycemic drugs; Z91.040 Latex allergy status; Z91.018 Allergy to other foods
CPT/HCPCS: 58999; 74177; 80047; 85025; 85610; 85730; 86850; 86900; 86901; 96360; 96361; 99284; J2250; J2400; Q9967; U0002

== ENCOUNTER → 2020-10-03 | Outpatient (REF) | payer OTHER ==
[~2020-10-03] MED LIST changes: +HYDR-3713 PO; +IBUP80TA PO; +METF-839 PO; +VICO10TA11 PO
[2020-10-03 17:35] LABS: APPEARANCE, URINE CLEAR (CLEAR); BACTERIA, URINE AUTO NEGATIVE (NEGATIVE); BILIRUBIN, URINE AUTO NEGATIVE (NEGATIVE); BLOOD, URINE BLOOD NEGATIVE (NEGATIVE); COLOR, URINE YELLOW (YELLOW); GLUCOSE, URINE (UA) AUTO 3+ mg/dL (NEGATIVE); KETONE, URINE AUTO NEGATIVE (NEGATIVE); LEUKOCYTE ESTERASE, URINE AUTO NEGATIVE (NEGATIVE); NITRITE, URINE AUTO NEGATIVE (NEGATIVE); PROTEIN, URINE AUTO NEGATIVE (NEGATIVE); RBC, URINE AUTO 1 /HPF (0-3); SPECIFIC GRAVITY URINE AUTO 1.037 (1.002-1.035); SQUAMOUS EPITHELIAL CELL UR AU 0 /HPF (0-6); UROBILINOGEN, URINE AUTO 0.2 mg/dL (0.0-2.0); WBC, URINE AUTO 1 /HPF (0-3)
== END ==
LOC: M SFHCWAGY 16:51
PROVIDERS: ATTEND Obstetrics & Gynecology
DX: R30.0 Dysuria (principal)

== ENCOUNTER → 2020-12-12 | Outpatient (CLI) | payer OTHER | LOC: M LABSMTC 12:48 | PROVIDERS: ATTEND Family Medicine | DX: Z20.822 Contact with and (suspected) exposure to COVID-19 (principal) ==

== ENCOUNTER → 2020-12-18 | Outpatient (REF) | payer OTHER ==
[2020-12-19 12:30] LABS: BASO # 0.1 10^3/uL (0.0-0.2); BASO % 0.8 % (0.0-1.0); EOS # 0.2 10^3/uL (0.0-0.5); EOS % 1.5 % (0.0-3.0); HEMATOCRIT 47.9 % (36.0-47.0); HEMOGLOBIN 15.2 g/dl (12.0-15.5); LYMPH # 3.5 10^3/uL (1.5-5.0); LYMPH % 27.4 % (24.0-44.0); MEAN CORPUSCULAR HEMOGLOBIN 24.2 pg (27.0-33.0); MEAN CORPUSCULAR HGB CONC 31.7 g/dl (32.0-36.5); MEAN CORPUSCULAR VOLUME 76.4 fl (80.0-96.0); MONO # 0.6 10^3/uL (0.0-0.8); MONO % 4.3 % (0.0-5.0); NEUTROPHILS # 8.4 10^3/uL (1.5-8.5); NEUTROPHILS % 64.8 % (36.0-66.0); PLATELET COUNT, AUTOMATED 320 10^3/uL (150-450); RED BLOOD COUNT 6.27 10^6/uL (4.00-5.40); WHITE BLOOD COUNT 12.9 10^3/uL (4.0-10.0)
[2020-12-19 12:54] LABS: HEMOGLOBIN A1c 11.5 %
[2020-12-19 13:00] LABS: ALT/SGPT 30 U/L (12-78); BILIRUBIN,TOTAL 0.8 MG/DL (0.2-1.0); BLOOD UREA NITROGEN 13 MG/DL (7-18); CALCIUM LEVEL 9.7 MG/DL (8.5-10.1); CARBON DIOXIDE LEVEL 27 MEQ/L (21-32); CHLORIDE LEVEL 100 MEQ/L (98-107); CHOLESTEROL LEVEL 118 MG/DL (<200); CHOLESTEROL RISK RATIO 3.687 (<5); CREATININE FOR GFR 0.54 MG/DL (0.55-1.30); FREE T4 1.34 NG/DL (0.76-1.46); GLOMERULAR FILTRATION RATE > 60.0 (>60); GLUCOSE, FASTING 335 MG/DL (70-100); HDL CHOLESTEROL 32 MG/DL (>40); LDL CHOLESTEROL 48 MG/DL (<100); NON-HDL-C 86 MG/DL; POTASSIUM SERUM 5.1 MEQ/L (3.5-5.1); SODIUM LEVEL 135 MEQ/L (136-145); THYROID STIMULATING HORMONE 0.801 uIU/ML (0.358-3.740); TOTAL PROTEIN 7.4 GM/DL (6.4-8.2); TRIGLYCERIDES LEVEL 191 MG/DL (<150)
== END ==
LOC: M SFHCCLAY 15:32
PROVIDERS: ATTEND Nurse Practitioner Family
DX: L68.0 Hirsutism (principal); E11.9 Type 2 diabetes mellitus without complications; N92.0 Excessive and frequent menstruation with regular cycle; F17.200 Nicotine dependence, unspecified, uncomplicated; E66.9 Obesity, unspecified; E78.5 Hyperlipidemia, unspecified

== ENCOUNTER → 2020-12-18 | Outpatient (CLI) | payer OTHER ==
--- NOTE | 2020-12-19 10:24 | REP ---
INDICATION: RIGHT AND LEFT KNEE PAIN COMPARISON: None. TECHNIQUE: AP, lateral, bilateral oblique and sunrise views of the right and left knee. FINDINGS: Right knee demonstrates subtle cortical irregularity to the lateral femoral condyle and very subtle increased sclerosis along the tibial plateau with subtle lateral spurring. Ovoid corticated calcifications in the subcutaneous tissue overlying the patella likely represent calcified granulomas related to old injury. No evidence for acute fracture or dislocation. No obvious effusion. Left knee demonstrates mild cortical irregularity to the lateral femoral condyle along with very subtle bilateral marginal spurring and increased sclerosis to the medial tibial plateau. Corticated calcified granulomata are also identified in the soft tissues overlying the medial knee and overlying the proximal tibia again likely representing calcified granulomas related to old injury. No acute fracture or dislocation. No obvious effusion. IMPRESSION: Relatively mild bilateral degenerative changes as described above. <Electronically signed by Maurice Brantley > 12/19/20 [id number]
== END ==
LOC: M CLY 15:55
PROVIDERS: ATTEND Nurse Practitioner Family
DX: M25.761 Osteophyte, right knee (principal); M25.762 Osteophyte, left knee

== ENCOUNTER → 2021-01-14 | Outpatient (CLI) | payer OTHER ==
--- NOTE | 2021-01-14 10:42 | REPMRS ---
Patient History The patient states she has not had a clinical breast exam in over a year. Family history of pancreatic cancer at age 67 in maternal grandmother. No Hormone Replacement Therapy Digital Woman Screen Mammo: January 14, 2021 - Exam #: [id number] Bilateral CC and MLO view(s) were taken. Technologist: Rosita De La Vega, Technologist No prior studies available for comparison. FINDINGS: There are scattered fibroglandular densities. The Volpara volumetric breast density category is: B. There is no evidence of dominant mass, architectural distortion, or grouped microcalcification typical of malignancy. 3-D tomosynthesis shows no additional findings. Assessment: BI-RADS/ACR category 1 mammogram. Negative Mammogram. Recommendation Routine screening mammogram of both breasts in 1 year (for women over age 40). This patient's [facility] Lifetime Breast Cancer RIsk is estimated at 11.4 %. This mammogram was interpreted with the aid of an FDA-approved computer-aided dectection system. Electronically Signed By: John Ghosh MD 01/14/21 [id number]
== END ==
LOC: M WHC 08:05
PROVIDERS: ATTEND Nurse Practitioner Family
DX: Z12.31 Encounter for screening mammogram for malignant neoplasm of breast (principal)

== ENCOUNTER → 2021-02-03 | Outpatient (REF) | payer OTHER ==
[2021-02-03 16:39] LABS: ALBUMIN 3.7 GM/DL (3.2-5.2); ALT/SGPT 24 U/L (12-78); BILIRUBIN,TOTAL 0.6 MG/DL (0.2-1.0); BLOOD UREA NITROGEN 13 MG/DL (7-18); CARBON DIOXIDE LEVEL 29 MEQ/L (21-32); CHLORIDE LEVEL 102 MEQ/L (98-107); CREATININE FOR GFR 0.69 MG/DL (0.55-1.30); GLOMERULAR FILTRATION RATE > 60.0 (>60); GLUCOSE, FASTING 245 MG/DL (70-100); POTASSIUM SERUM 4.3 MEQ/L (3.5-5.1); SODIUM LEVEL 136 MEQ/L (136-145); TOTAL PROTEIN 6.8 GM/DL (6.4-8.2)
[2021-02-03 17:00] LABS: HEMOGLOBIN A1c 10.7 %
== END ==
LOC: M SFHCCLAY 12:50
PROVIDERS: ATTEND Nurse Practitioner Family
DX: E11.9 Type 2 diabetes mellitus without complications (principal)

== ENCOUNTER → 2021-03-11 | Outpatient (CLI) | payer OTHER | LOC: M LABSMTC 10:48 | PROVIDERS: ATTEND Pediatrics | DX: Z20.828 Contact with and (suspected) exposure to other viral communicable diseases (principal); Z11.59 Encounter for screening for other viral diseases ==

== ENCOUNTER → 2021-04-04 | Outpatient (REF) | payer OTHER ==
[2021-04-04 17:47] LABS: BLOOD UREA NITROGEN 11 MG/DL (7-18); CALCIUM LEVEL 8.9 MG/DL (8.5-10.1); CARBON DIOXIDE LEVEL 27 MEQ/L (21-32); CHLORIDE LEVEL 103 MEQ/L (98-107); CREATININE FOR GFR 0.52 MG/DL (0.55-1.30); GLOMERULAR FILTRATION RATE > 60.0 (>60); GLUCOSE, FASTING 249 MG/DL (70-100); POTASSIUM SERUM 4.5 MEQ/L (3.5-5.1); SODIUM LEVEL 139 MEQ/L (136-145)
== END ==
LOC: M SFHCCLAY 12:13
PROVIDERS: ATTEND Nurse Practitioner Family
DX: E11.9 Type 2 diabetes mellitus without complications (principal)

== ENCOUNTER → 2021-04-08 | Outpatient (CLI) | payer OTHER ==
--- NOTE | 2021-04-08 18:36 | REPVR ---
PROCEDURE INFORMATION: Exam: MR Head Without Contrast Exam date and time: 04/08/2021 5:28 PM Age: 35 years old Clinical indication: Pain; Headache; Migraine; Aura effect not specified; Other: Unknown TECHNIQUE: Imaging protocol: MR of the head without contrast. COMPARISON: No relevant prior studies available. FINDINGS: Brain: Normal. No acute infarct. No hemorrhage. No significant white matter disease. No edema. Cerebral ventricles: Normal. No ventriculomegaly. 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 Bones/joints: Unremarkable. Paranasal sinuses: Normal as visualized. No acute sinusitis. Mastoid air cells: Normal as visualized. No mastoid effusion. Orbital cavity: Unremarkable. Soft tissues: Unremarkable. IMPRESSION: 1. 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 2. No acute intracranial findings. Electronically signed by: Hermilo Nash On 04/08/2021 18:35:41 PM
== END ==
LOC: M RAD 17:23
PROVIDERS: ATTEND Nurse Practitioner Family
DX: G44.009 Cluster headache syndrome, unspecified, not intractable (principal)

== ENCOUNTER → 2021-04-11 | Outpatient (REF) | payer OTHER ==
[2021-04-11 12:09] LABS: ALBUMIN 3.4 GM/DL (3.2-5.2); ALT/SGPT 26 U/L (12-78); BILIRUBIN,TOTAL 0.7 MG/DL (0.2-1.0); BLOOD UREA NITROGEN 14 MG/DL (7-18); CALCIUM LEVEL 9.5 MG/DL (8.5-10.1); CARBON DIOXIDE LEVEL 27 MEQ/L (21-32); CHLORIDE LEVEL 103 MEQ/L (98-107); CREATININE FOR GFR 0.46 MG/DL (0.55-1.30); GLOMERULAR FILTRATION RATE > 60.0 (>60); GLUCOSE, FASTING 254 MG/DL (70-100); POTASSIUM SERUM 4.5 MEQ/L (3.5-5.1); PTH INTACT 22.1 PG/ML (18.5-88.0); SODIUM LEVEL 137 MEQ/L (136-145); TOTAL PROTEIN 6.5 GM/DL (6.4-8.2)
== END ==
LOC: M SFHCCLAY 07:04
PROVIDERS: ATTEND Nurse Practitioner Family
DX: E23.6 Other disorders of pituitary gland (principal); E11.9 Type 2 diabetes mellitus without complications

== ENCOUNTER → 2021-05-21 | Outpatient (REF) | payer OTHER ==
[2021-05-21 16:19] LABS: ALBUMIN 3.5 GM/DL (3.2-5.2); ALT/SGPT 22 U/L (12-78); AMYLASE 34 U/L (25-115); BILIRUBIN,TOTAL 0.7 MG/DL (0.2-1.0); BLOOD UREA NITROGEN 7 MG/DL (7-18); CALCIUM LEVEL 8.6 MG/DL (8.5-10.1); CARBON DIOXIDE LEVEL 27 MEQ/L (21-32); CHLORIDE LEVEL 102 MEQ/L (98-107); CREATININE FOR GFR 0.44 MG/DL (0.55-1.30); GLOMERULAR FILTRATION RATE > 60.0 (>60); GLUCOSE, FASTING 261 MG/DL (70-100); LIPASE 311 U/L (73-393); POTASSIUM SERUM 4.1 MEQ/L (3.5-5.1); SODIUM LEVEL 136 MEQ/L (136-145); TOTAL PROTEIN 6.6 GM/DL (6.4-8.2)
== END ==
LOC: M SFHCCLAY 09:39
PROVIDERS: ATTEND Nurse Practitioner Family
DX: K85.30 Drug induced acute pancreatitis without necrosis or infection (principal)

== ENCOUNTER → 2021-08-11 | Outpatient (REF) | payer OTHER ==
[2021-08-11 16:33] LABS: BLOOD UREA NITROGEN 9 MG/DL (7-18); CARBON DIOXIDE LEVEL 28 MEQ/L (21-32); CHLORIDE LEVEL 103 MEQ/L (98-107); CREATININE FOR GFR 0.46 MG/DL (0.55-1.30); FREE T4 1.41 NG/DL (0.76-1.46); FREE THYROXINE INDEX 3.9 % (1.3-4.8); GLOMERULAR FILTRATION RATE > 60.0 (>60); GLUCOSE, FASTING 268 MG/DL (70-100); POTASSIUM SERUM 4.4 MEQ/L (3.5-5.1); SODIUM LEVEL 136 MEQ/L (136-145); T UPTAKE 35 % (30-39); THYROID STIMULATING HORMONE 0.911 uIU/ML (0.358-3.740); THYROXINE (T4) 11.2 UG/DL (4.5-12.0)
[2021-08-11 16:36] LABS: THYROID PEROXIDASE ANTIBODY < 28.0 U/ML (<60.0)
== END ==
LOC: M SFHCCLAY 08:18
PROVIDERS: ATTEND Nurse Practitioner Family
DX: E11.9 Type 2 diabetes mellitus without complications (principal); E04.9 Nontoxic goiter, unspecified

== ENCOUNTER → 2021-12-11 | Outpatient (REF) | payer OTHER ==
[~2021-12-11] MED LIST changes: -DICY20TA11; +DICY20TA20
[2021-12-12 12:08] LABS: BASO # 0.1 10^3/uL (0.0-0.2); BASO % 0.5 % (0.0-1.0); EOS # 0.3 10^3/uL (0.0-0.5); EOS % 1.7 % (0.0-3.0); HEMATOCRIT 45.3 % (36.0-47.0); LYMPH # 3.7 10^3/uL (1.5-5.0); LYMPH % 23.4 % (24.0-44.0); MEAN CORPUSCULAR HEMOGLOBIN 27.6 pg (27.0-33.0); MEAN CORPUSCULAR HGB CONC 33.1 g/dl (32.0-36.5); MEAN CORPUSCULAR VOLUME 83.4 fl (80.0-96.0); MONO # 0.7 10^3/uL (0.0-0.8); MONO % 4.5 % (2.0-8.0); NEUTROPHILS # 10.8 10^3/uL (1.5-8.5); NEUTROPHILS % 69.2 % (36.0-66.0); PLATELET COUNT, AUTOMATED 324 10^3/uL (150-450); RED BLOOD COUNT 5.43 10^6/uL (4.00-5.40); WHITE BLOOD COUNT 15.6 10^3/uL (4.0-10.0)
[2021-12-12 12:31] LABS: ERYTHROCYTE SEDIMENTATION RATE 23 mm/hr (0-20)
[2021-12-12 12:41] LABS: ALBUMIN 3.6 GM/DL (3.2-5.2); ALT/SGPT 36 U/L (12-78); BILIRUBIN,TOTAL 0.7 MG/DL (0.2-1.0); BLOOD UREA NITROGEN 10 MG/DL (7-18); C REACTIVE PROTEIN QUANTITATIV 0.65 MG/DL (0.00-0.30); CALCIUM LEVEL 9.3 MG/DL (8.5-10.1); CARBON DIOXIDE LEVEL 25 MEQ/L (21-32); CHLORIDE LEVEL 105 MEQ/L (98-107); GLOMERULAR FILTRATION RATE > 60.0 (>60); GLUCOSE, FASTING 212 MG/DL (70-100); SODIUM LEVEL 136 MEQ/L (136-145); TOTAL PROTEIN 6.7 GM/DL (6.4-8.2)
== END ==
LOC: M SFHCCLAY 15:25
PROVIDERS: ATTEND Family Medicine
DX: M54.50 Low back pain, unspecified (principal); M46.1 Sacroiliitis, not elsewhere classified

== ENCOUNTER → 2021-12-31 | Outpatient (REF) | payer OTHER ==
[2021-12-31 12:44] LABS: BLOOD UREA NITROGEN 15 MG/DL (7-18); CALCIUM LEVEL 8.8 MG/DL (8.5-10.1); CARBON DIOXIDE LEVEL 28 MEQ/L (21-32); CHLORIDE LEVEL 103 MEQ/L (98-107); CHOLESTEROL LEVEL 97 MG/DL (<200); CHOLESTEROL RISK RATIO 3.464 (<5); CREATININE FOR GFR 0.52 MG/DL (0.55-1.30); GLOMERULAR FILTRATION RATE > 60.0 (>60); GLUCOSE, FASTING 249 MG/DL (70-100); HDL CHOLESTEROL 28 MG/DL (>40); LDL CHOLESTEROL 35 MG/DL (<100); NON-HDL-C 69 MG/DL; POTASSIUM SERUM 4.7 MEQ/L (3.5-5.1); SODIUM LEVEL 137 MEQ/L (136-145); TRIGLYCERIDES LEVEL 172 MG/DL (<150)
[2021-12-31 12:50] LABS: TOTAL 25(OH) VITAMIN D 32.3 NG/ML (30.0-100.0)
[2021-12-31 12:51] LABS: MALB URINE SIEMENS 31.9 MG/L; MAU/CREAT RATIO 18.9 MCG/MG (0.0-30.0)
[2021-12-31 14:06] LABS: HEMOGLOBIN A1c 8.2 %
== END ==
LOC: M LAB REF 11:20 → M LABDRAWC 11:20
PROVIDERS: ATTEND Internal Medicine Endocrinology, Diabetes & Metabolism
DX: E11.9 Type 2 diabetes mellitus without complications (principal); E66.01 Morbid (severe) obesity due to excess calories

== ENCOUNTER → 2022-03-17 | Outpatient (REF) | payer OTHER | LOC: M SFHCCLAY 11:17 | PROVIDERS: ATTEND Nurse Practitioner Family | DX: J02.9 Acute pharyngitis, unspecified (principal) ==

== ENCOUNTER → 2022-04-01 | Outpatient (REF) | payer OTHER ==
[2022-04-02 11:54] LABS: MONO REFLEX EBV COMP NEGATIVE (NEGATIVE)
[2022-04-02 11:58] LABS: BASO # 0.1 10^3/uL (0.0-0.2); BASO % 0.5 % (0.0-1.0); EOS # 0.2 10^3/uL (0.0-0.5); EOS % 1.4 % (0.0-3.0); HEMATOCRIT 43.7 % (36.0-47.0); HEMOGLOBIN 14.4 g/dl (12.0-15.5); LYMPH % 22.8 % (24.0-44.0); MEAN CORPUSCULAR HEMOGLOBIN 28.2 pg (27.0-33.0); MEAN CORPUSCULAR VOLUME 85.7 fl (80.0-96.0); MONO # 0.6 10^3/uL (0.0-0.8); MONO % 4.3 % (2.0-8.0); NEUTROPHILS # 9.4 10^3/uL (1.5-8.5); NEUTROPHILS % 70.6 % (36.0-66.0); PLATELET COUNT, AUTOMATED 281 10^3/uL (150-450); WHITE BLOOD COUNT 13.3 10^3/uL (4.0-10.0)
[2022-04-02 12:40] LABS: ALBUMIN 3.3 GM/DL (3.2-5.2); ALT/SGPT 23 U/L (12-78); BILIRUBIN,TOTAL 0.6 MG/DL (0.2-1.0); BLOOD UREA NITROGEN 10 MG/DL (7-18); CALCIUM LEVEL 9.3 MG/DL (8.5-10.1); CARBON DIOXIDE LEVEL 29 MEQ/L (21-32); CHLORIDE LEVEL 106 MEQ/L (98-107); CREATININE FOR GFR 0.44 MG/DL (0.55-1.30); GLOMERULAR FILTRATION RATE > 60.0 (>60); GLUCOSE, FASTING 224 MG/DL (70-100); SODIUM LEVEL 141 MEQ/L (136-145); TOTAL PROTEIN 6.2 GM/DL (6.4-8.2)
[2022-04-03 14:09] LABS: EBV AB TO NUCLEAR ANTIGEN >600.0 U/mL (0.0-17.9); EBV VIRAL CAPSID AG IgG >600.0 U/mL (0.0-17.9); EBV VIRAL CAPSID AG IgM <36.0 U/mL (0.0-35.9)
== END ==
LOC: M SFHCCLAY 14:37
PROVIDERS: ATTEND Nurse Practitioner Family
DX: J01.00 Acute maxillary sinusitis, unspecified (principal)

== ENCOUNTER → 2022-06-17 | Outpatient (REF) | payer OTHER ==
[2022-06-17 17:35] LABS: BASO % 0.2 % (0.0-1.0); EOS # 0.3 10^3/uL (0.0-0.5); EOS % 1.8 % (0.0-3.0); HEMOGLOBIN 15.6 g/dl (12.0-15.5); LYMPH # 3.7 10^3/uL (1.5-5.0); MEAN CORPUSCULAR HEMOGLOBIN 27.7 pg (27.0-33.0); MEAN CORPUSCULAR HGB CONC 33.2 g/dl (32.0-36.5); MEAN CORPUSCULAR VOLUME 83.5 fl (80.0-96.0); MONO # 0.6 10^3/uL (0.0-0.8); MONO % 3.7 % (2.0-8.0); NEUTROPHILS # 10.1 10^3/uL (1.5-8.5); PLATELET COUNT, AUTOMATED 303 10^3/uL (150-450); RED BLOOD COUNT 5.63 10^6/uL (4.00-5.40); WHITE BLOOD COUNT 14.7 10^3/uL (4.0-10.0)
[2022-06-17 18:11] LABS: ALBUMIN 3.6 GM/DL (3.2-5.2); ALT/SGPT 26 U/L (12-78); AMYLASE 32 U/L (25-115); BILIRUBIN,TOTAL 0.5 MG/DL (0.2-1.0); BLOOD UREA NITROGEN 12 MG/DL (7-18); CARBON DIOXIDE LEVEL 22 MEQ/L (21-32); CHLORIDE LEVEL 109 MEQ/L (98-107); CREATININE FOR GFR 0.55 MG/DL (0.55-1.30); GLOMERULAR FILTRATION RATE > 60.0 (>60); GLUCOSE, FASTING 228 MG/DL (70-100); LIPASE 147 U/L (73-393); POTASSIUM SERUM 4.4 MEQ/L (3.5-5.1); SODIUM LEVEL 139 MEQ/L (136-145); TOTAL PROTEIN 6.9 GM/DL (6.4-8.2)
== END ==
LOC: M SFHCCLAY 14:41
PROVIDERS: ATTEND Nurse Practitioner Family
DX: R10.12 Left upper quadrant pain (principal)

== ENCOUNTER → 2022-07-01 | Outpatient (CLI) | payer OTHER ==
[~2022-07-01] MED LIST changes: +E-Z-GAS II EFFERVESCENT PACKET (SODIUM BICARB./CITRIC ACID/SIMETHICONE) As Ordered ONE; +E-Z-HD 98% w/w 340GM SUSP BTL As Ordered ONE; +E-Z-PAQUE 96% w/w SUSP 176GM BTL As Ordered ONE
== END ==
LOC: M RAD 09:32
PROVIDERS: ATTEND Nurse Practitioner Family
DX: R10.13 Epigastric pain (principal)

== ENCOUNTER → 2022-09-30 | Outpatient (CLI) | payer OTHER ==
[~2022-09-30] MED LIST changes: -E-Z-GAS II EFFERVESCENT PACKET (SODIUM BICARB./CITRIC ACID/SIMETHICONE) As Ordered ONE; -E-Z-HD 98% w/w 340GM SUSP BTL As Ordered ONE; -E-Z-PAQUE 96% w/w SUSP 176GM BTL As Ordered ONE
== END ==
LOC: M SOG 08:48
PROVIDERS: ATTEND Orthopaedic Surgery Adult Reconstructive Orthopaedic Surgery
DX: M17.12 Unilateral primary osteoarthritis, left knee (principal); M17.11 Unilateral primary osteoarthritis, right knee

== ENCOUNTER → 2022-12-22 | Outpatient (REF) | payer OTHER ==
[2022-12-23 10:28] LABS: BASO # 0.1 10^3/uL (0.0-0.2); BASO % 0.5 % (0.0-1.0); EOS # 0.2 10^3/uL (0.0-0.5); EOS % 1.2 % (0.0-3.0); LYMPH # 3.1 10^3/uL (1.5-5.0); LYMPH % 23.5 % (24.0-44.0); MEAN CORPUSCULAR HEMOGLOBIN 27.8 pg (27.0-33.0); MEAN CORPUSCULAR HGB CONC 31.9 g/dl (32.0-36.5); MONO # 0.7 10^3/uL (0.0-0.8); MONO % 5.4 % (2.0-8.0); NEUTROPHILS % 69.1 % (36.0-66.0); PLATELET COUNT, AUTOMATED 316 10^3/uL (150-450)
[2022-12-23 10:51] LABS: ALBUMIN 3.6 G/DL (3.2-5.2); ALKALINE PHOSPHATASE 71 U/L (46-116); ALT/SGPT 22 U/L (7.0-40); AST/SGOT 12 U/L (<34); BILIRUBIN,TOTAL 0.7 MG/DL (0.3-1.2); BLOOD UREA NITROGEN 15 MG/DL (9-23); CALCIUM LEVEL 8.9 MG/DL (8.5-10.1); CARBON DIOXIDE LEVEL 30 MMOL/L (20-31); CHLORIDE LEVEL 105 MMOL/L (98-107); CHOLESTEROL LEVEL 92 MG/DL (<200); CHOLESTEROL RISK RATIO 3.69 (<5); CREATININE FOR GFR 0.43 MG/DL (0.55-1.30); FREE T4 1.31 NG/DL (0.89-1.76); GLOMERULAR FILTRATION RATE > 60.0 (>60); GLUCOSE, FASTING 165 MG/DL (60-100); HDL CHOLESTEROL 24.9 MG/DL (>40); LDL CHOLESTEROL 42.5 MG/DL (<100); NON-HDL-C 67 MG/DL; POTASSIUM SERUM 4.5 MMOL/L (3.5-5.1); SODIUM LEVEL 140 MMOL/L (136-145); TOTAL PROTEIN 6.4 G/DL (5.7-8.2); TRIGLYCERIDES LEVEL 123 MG/DL (<150)
[2022-12-23 10:52] LABS: THYROID STIMULATING HORMONE 0.952 uIU/ML (0.55-4.78)
[2022-12-23 11:04] LABS: CREATININE, URINE 158.6 MG/DL
[2022-12-23 11:11] LABS: HEMOGLOBIN A1c 7.3 % (4.0-6.0)
== END ==
LOC: M SFHCCLAY 08:38
PROVIDERS: ATTEND Nurse Practitioner Family
DX: E11.9 Type 2 diabetes mellitus without complications (principal); E04.9 Nontoxic goiter, unspecified; L68.0 Hirsutism; N92.0 Excessive and frequent menstruation with regular cycle; F17.200 Nicotine dependence, unspecified, uncomplicated; E66.9 Obesity, unspecified; E78.5 Hyperlipidemia, unspecified; R10.12 Left upper quadrant pain

== ENCOUNTER → 2023-03-31 | Outpatient (CLI) | payer OTHER | LOC: M CARPUL 08:14 | PROVIDERS: ATTEND Nurse Practitioner Family | DX: R00.2 Palpitations (principal) ==

== ENCOUNTER → 2023-06-02 | Outpatient (CLI) | payer OTHER | LOC: M SOG 08:07 | PROVIDERS: ATTEND Orthopaedic Surgery | DX: M25.562 Pain in left knee (principal); M25.561 Pain in right knee ==

== ENCOUNTER → 2023-07-05 | Outpatient (REF) | payer OTHER ==
[2023-07-05 12:19] LABS: HEMOGLOBIN A1c 7.6 % (4.0-6.0)
[2023-07-05 12:26] LABS: ALBUMIN 3.6 G/DL (3.2-5.2); ALKALINE PHOSPHATASE 72 U/L (46-116); ALT/SGPT 23 U/L (7.0-40); AST/SGOT < 8 U/L (<34); BILIRUBIN,TOTAL 0.7 MG/DL (0.3-1.2); BLOOD UREA NITROGEN 16 MG/DL (9-23); CALCIUM LEVEL 9.3 MG/DL (8.5-10.1); CARBON DIOXIDE LEVEL 25 MMOL/L (20-31); CHLORIDE LEVEL 103 MMOL/L (98-107); CREATININE FOR GFR 0.36 MG/DL (0.55-1.30); GLOMERULAR FILTRATION RATE > 60.0 (>60); GLUCOSE, FASTING 186 MG/DL (60-100); POTASSIUM SERUM 4.4 MMOL/L (3.5-5.1); SODIUM LEVEL 136 MMOL/L (136-145); TOTAL PROTEIN 6.5 G/DL (5.7-8.2)
[2023-07-05 12:29] LABS: FREE T4 1.29 NG/DL (0.89-1.76); THYROID STIMULATING HORMONE 1.524 uIU/ML (0.55-4.78)
== END ==
LOC: M SFHCCLAY 07:35
PROVIDERS: ATTEND Nurse Practitioner Family
DX: E11.9 Type 2 diabetes mellitus without complications (principal); E04.9 Nontoxic goiter, unspecified; R10.12 Left upper quadrant pain

== ENCOUNTER → 2023-07-23 | Outpatient (REF) | payer OTHER ==
[2023-07-23 17:31] LABS: HEMATOCRIT 48.3 % (36.0-47.0); HEMOGLOBIN 16.3 g/dl (12.0-15.5); LYMPH % 18.9 % (24.0-44.0); MEAN CORPUSCULAR HGB CONC 33.7 g/dl (32.0-36.5); MEAN CORPUSCULAR VOLUME 82.8 fl (80.0-96.0); NEUTROPHILS % 76.7 % (36.0-66.0); PLATELET COUNT, AUTOMATED 348 10^3/uL (150-450); RED BLOOD COUNT 5.83 10^6/uL (4.00-5.40); WHITE BLOOD COUNT 16.7 10^3/uL (4.0-10.0)
[2023-07-23 17:32] LABS: BASO # 0.1 10^3/uL (0.0-0.2); BASO % 0.3 % (0.0-1.0); EOS % 0.2 % (0.0-3.0); LYMPH # 3.2 10^3/uL (1.5-5.0); MONO # 0.6 10^3/uL (0.0-0.8); MONO % 3.4 % (2.0-8.0); NEUTROPHILS # 12.8 10^3/uL (1.5-8.5)
[2023-07-23 17:53] LABS: LIPASE 28 U/L (12-53)
[2023-07-23 17:54] LABS: AMYLASE 29 U/L (30-118)
[2023-07-23 17:55] LABS: ALBUMIN 3.8 G/DL (3.2-5.2); ALKALINE PHOSPHATASE 75 U/L (46-116); ALT/SGPT 29 U/L (7.0-40); AST/SGOT 12 U/L (<34); BILIRUBIN,TOTAL 0.8 MG/DL (0.3-1.2); BLOOD UREA NITROGEN 9 MG/DL (9-23); CALCIUM LEVEL 9.8 MG/DL (8.5-10.1); CARBON DIOXIDE LEVEL 22 MMOL/L (20-31); CHLORIDE LEVEL 103 MMOL/L (98-107); CREATININE FOR GFR 0.34 MG/DL (0.55-1.30); GLOMERULAR FILTRATION RATE > 60.0 (>60); GLUCOSE, FASTING 222 MG/DL (60-100); POTASSIUM SERUM 4.5 MMOL/L (3.5-5.1); SODIUM LEVEL 138 MMOL/L (136-145); TOTAL PROTEIN 6.8 G/DL (5.7-8.2)
== END ==
LOC: M SFHCCAPE 10:22
PROVIDERS: ATTEND Physician Assistant
DX: R10.13 Epigastric pain (principal)

== ENCOUNTER → 2023-10-18 | Outpatient (REF) | payer OTHER ==
[2023-10-18 12:28] LABS: HEMOGLOBIN A1c 7.3 % (4.0-6.0)
[2023-10-18 12:48] LABS: FREE T4 1.14 NG/DL (0.89-1.76)
[2023-10-18 12:49] LABS: ALBUMIN 3.7 G/DL (3.2-5.2); ALKALINE PHOSPHATASE 64 U/L (46-116); ALT/SGPT 27 U/L (7.0-40); AST/SGOT 10 U/L (<34); BILIRUBIN,TOTAL 0.7 MG/DL (0.3-1.2); BLOOD UREA NITROGEN 16 MG/DL (9-23); CALCIUM LEVEL 8.7 MG/DL (8.5-10.1); CARBON DIOXIDE LEVEL 28 MMOL/L (20-31); CHLORIDE LEVEL 103 MMOL/L (98-107); CREATININE FOR GFR 0.43 MG/DL (0.55-1.30); GLOMERULAR FILTRATION RATE > 60.0 (>60); GLUCOSE, FASTING 163 MG/DL (60-100); POTASSIUM SERUM 4.9 MMOL/L (3.5-5.1); SODIUM LEVEL 140 MMOL/L (136-145); TOTAL PROTEIN 6.6 G/DL (5.7-8.2)
== END ==
LOC: M SFHCCLAY 07:41
PROVIDERS: ATTEND Nurse Practitioner Family
DX: R10.13 Epigastric pain (principal); E11.9 Type 2 diabetes mellitus without complications; E04.9 Nontoxic goiter, unspecified

== ENCOUNTER → 2023-11-15 | Outpatient (CLI) | payer OTHER | LOC: M WHC 10:22 | PROVIDERS: ATTEND Nurse Practitioner Family | DX: E04.9 Nontoxic goiter, unspecified (principal) ==

== ENCOUNTER → 2024-01-05 | Outpatient (REF) | payer OTHER | LOC: M SFHCCLAY 09:06 | PROVIDERS: ATTEND Nurse Practitioner Family | DX: J02.9 Acute pharyngitis, unspecified (principal) ==

== ENCOUNTER → 2024-01-06 | Outpatient (REF) | payer OTHER | LOC: M SFHCCLAY 11:28 | PROVIDERS: ATTEND Nurse Practitioner Family | DX: R19.7 Diarrhea, unspecified (principal) ==

== ENCOUNTER → 2024-01-12 | Outpatient (CLI) | payer OTHER ==
[~2024-01-12] MED LIST changes: +LIDOCAINE 1% MDV 20ML VIAL As Ordered ONE
[2024-01-12 13:30] VITALS: BP 137/92; TEMP 98.1; O2SAT 97
== END ==
LOC: M IRPRO 13:23
PROVIDERS: ATTEND Otolaryngology
DX: D44.0 Neoplasm of uncertain behavior of thyroid gland (principal)

== ENCOUNTER → 2024-01-18 | Outpatient (CLI) | payer OTHER | LOC: M IRPRO 10:03 | PROVIDERS: ATTEND Otolaryngology | DX: D44.0 Neoplasm of uncertain behavior of thyroid gland (principal); Z53.9 Procedure and treatment not carried out, unspecified reason ==

== ENCOUNTER → 2024-02-11 | Outpatient (CLI) | payer OTHER ==
[~2024-02-11] MED LIST changes: +CYCL-707 PO; -LIDOCAINE 1% MDV 20ML VIAL As Ordered ONE; +METO1TAB87 PO
== END ==
LOC: M CLY 11:19
PROVIDERS: ATTEND Nurse Practitioner Family
DX: M47.816 Spondylosis without myelopathy or radiculopathy, lumbar region (principal); M54.59 Other low back pain; R20.2 Paresthesia of skin

== ENCOUNTER 2024-02-15 12:35 | Emergency (ER) | payer OTHER ==
[~2024-02-15] VITALS: Ht 167.6 cm; Wt 136.4 kg
[~2024-02-15 12:35] MED LIST changes: -CYCL-707 PO; -METO1TAB87 PO
[2024-02-15 13:41] LABS: BASO % 0.3 % (0.0-1.0); EOS # 0.1 10^3/uL (0.0-0.5); EOS % 0.5 % (0.0-3.0); HEMATOCRIT 46.3 % (36.0-47.0); HEMOGLOBIN 15.7 g/dl (12.0-15.5); LYMPH # 1.9 10^3/uL (1.5-5.0); LYMPH % 11.9 % (24.0-44.0); MEAN CORPUSCULAR HEMOGLOBIN 28.2 pg (27.0-33.0); MEAN CORPUSCULAR HGB CONC 33.9 g/dl (32.0-36.5); MEAN CORPUSCULAR VOLUME 83.1 fl (80.0-96.0); MONO # 0.8 10^3/uL (0.0-0.8); NEUTROPHILS # 12.8 10^3/uL (1.5-8.5); NEUTROPHILS % 81.9 % (36.0-66.0); PLATELET COUNT, AUTOMATED 312 10^3/uL (150-450); RED BLOOD COUNT 5.57 10^6/uL (4.00-5.40); WHITE BLOOD COUNT 15.6 10^3/uL (4.0-10.0)
[2024-02-15 13:46] VITALS: BP 130/69
[2024-02-15] MEDS: METOPROLOL TART 50 MG TAB PO ONE (13:46)
[2024-02-15] MEDS: NS 1,000 ML IV ONE (13:46)
[2024-02-15] MEDS: ASPIRIN 81MG CHEW TABLET PO ONE (13:46)
[2024-02-15 14:03] LABS: ALBUMIN 3.7 G/DL (3.2-5.2); ALKALINE PHOSPHATASE 63 U/L (46-116); ALT/SGPT 24 U/L (7.0-40); AST/SGOT 14 U/L (<34); BILIRUBIN,DIRECT 0.3 MG/DL (<0.4); BILIRUBIN,TOTAL 0.7 MG/DL (0.3-1.2); BLOOD UREA NITROGEN 10 MG/DL (9-23); CALCIUM LEVEL 8.8 MG/DL (8.5-10.1); CARBON DIOXIDE LEVEL 25 MMOL/L (20-31); CHLORIDE LEVEL 108 MMOL/L (98-107); CK-MB VALUE MASS < 1.0 NG/ML (<3.6); CPK CREATINE PHOSPHOKINASE 37 U/L (34-145); CREATININE FOR GFR 0.28 MG/DL (0.55-1.30); GLOMERULAR FILTRATION RATE > 60.0 (>58); GLUCOSE, FASTING 207 MG/DL (60-100); POTASSIUM SERUM 3.9 MMOL/L (3.5-5.1); SODIUM LEVEL 138 MMOL/L (136-145); TOTAL PROTEIN 6.8 G/DL (5.7-8.2)
[2024-02-15 14:06] LABS: THYROID STIMULATING HORMONE 1.504 uIU/ML (0.55-4.78)
[2024-02-15 14:08] LABS: FREE T4 1.36 NG/DL (0.89-1.76)
[2024-02-15 14:25] LABS: HCG, SERUM QUALITATIVE NEGATIVE (NEGATIVE); RSV AMPLIFICATION NEGATIVE (NEGATIVE)
[2024-02-15 15:23] LABS: D-DIMER QUANT 0.27 ug/mL (<0.5); INR 1.05; PARTIAL THROMBOPLASTIN TIME 28.2 SECONDS (24.8-34.2); PROTHROMBIN TIME 13.4 SECONDS (12.5-14.5)
[2024-02-15 15:31] LABS: CK-MB VALUE MASS < 1.0 NG/ML (<3.6)
[2024-02-15 15:32] LABS: CPK CREATINE PHOSPHOKINASE 24 U/L (34-145); MB/CK RELATIVE INDEX 4.16 (< OR =4)
[2024-02-15 15:50] VITALS: O2SAT 97
[2024-02-15] MEDS ORDERED: METO1TAB87 PO (15:56)
[2024-02-15 16:00] VITALS: BP 115/77
[2024-02-15] MEDS ORDERED: CYCL-707 PO (16:12)
[2024-02-15 16:15] VITALS: TEMP 98
== END 2024-02-15 16:15 | disposition home or self-care (01) ==
LOC: M ED 12:35
DX: I47.10 Supraventricular tachycardia, unspecified (principal); E11.9 Type 2 diabetes mellitus without complications; F41.9 Anxiety disorder, unspecified; F17.200 Nicotine dependence, unspecified, uncomplicated; F10.10 Alcohol abuse, uncomplicated; Z91.040 Latex allergy status; Z91.018 Allergy to other foods; Z79.4 Long term (current) use of insulin; Z79.02 Long term (current) use of antithrombotics/antiplatelets; Z79.1 Long term (current) use of non-steroidal anti-inflammatories (NSAID); Z79.899 Other long term (current) drug therapy

== ENCOUNTER → 2024-02-15 | Outpatient (CLI) | payer OTHER | LOC: M CLY 10:23 | PROVIDERS: ATTEND Physician Assistant | DX: Z23 Encounter for immunization (principal); M54.2 Cervicalgia ==

== ENCOUNTER → 2024-03-28 | Outpatient (REF) | payer OTHER ==
[~2024-03-28] MED LIST changes: +CYCL-707 PO; +METO1TAB87 PO
[2024-03-28 18:03] LABS: FOLLICLE STIMULATING HORMONE 1.8 mIU/ML; LUTEINIZING HORMONE 2.7 mIU/ML
== END ==
LOC: M SFHCCLAY 14:45
PROVIDERS: ATTEND Nurse Practitioner Family
DX: R23.2 Flushing (principal)

== ENCOUNTER → 2024-03-29 | Outpatient (REF) | payer OTHER ==
[2024-03-29 18:55] LABS: RSV AMPLIFICATION NEGATIVE (NEGATIVE)
== END ==
LOC: M SFHCCLAY 15:02
PROVIDERS: ATTEND Physician Assistant
DX: J02.9 Acute pharyngitis, unspecified (principal)

== ENCOUNTER → 2024-06-14 | Outpatient (CLI) | payer OTHER ==
[~2024-06-14] MED LIST changes: +ONDA-282; -ONDA4TAB6
== END ==
LOC: M CLY 15:14
PROVIDERS: ATTEND Physician Assistant
DX: R10.10 Upper abdominal pain, unspecified (principal)

== ENCOUNTER → 2024-06-14 | Outpatient (REF) | payer OTHER ==
[2024-06-14 18:47] LABS: BASO # 0.1 10^3/uL (0.0-0.2); BASO % 0.4 % (0.0-1.0); EOS # 0.1 10^3/uL (0.0-0.5); HEMATOCRIT 48.4 % (36.0-47.0); HEMOGLOBIN 16.2 g/dl (12.0-15.5); LYMPH # 3.6 10^3/uL (1.5-5.0); LYMPH % 25.1 % (24.0-44.0); MEAN CORPUSCULAR HEMOGLOBIN 28.2 pg (27.0-33.0); MEAN CORPUSCULAR HGB CONC 33.5 g/dl (32.0-36.5); MEAN CORPUSCULAR VOLUME 84.2 fl (80.0-96.0); MONO # 0.6 10^3/uL (0.0-0.8); MONO % 4.2 % (2.0-8.0); NEUTROPHILS # 9.8 10^3/uL (1.5-8.5); PLATELET COUNT, AUTOMATED 323 10^3/uL (150-450); RED BLOOD COUNT 5.75 10^6/uL (4.00-5.40); WHITE BLOOD COUNT 14.3 10^3/uL (4.0-10.0)
[2024-06-14 19:18] LABS: LIPASE 29 U/L (12-53)
[2024-06-14 19:20] LABS: ALBUMIN 3.8 G/DL (3.2-5.2); ALKALINE PHOSPHATASE 82 U/L (46-116); ALT/SGPT 28 U/L (7.0-40); AMYLASE 34 U/L (30-118); AST/SGOT < 8 U/L (<34); BILIRUBIN,TOTAL 0.8 MG/DL (0.3-1.2); BLOOD UREA NITROGEN 14 MG/DL (9-23); CALCIUM LEVEL 9.5 MG/DL (8.5-10.1); CARBON DIOXIDE LEVEL 24 MMOL/L (20-31); CHLORIDE LEVEL 103 MMOL/L (98-107); CREATININE FOR GFR 0.43 MG/DL (0.55-1.30); GLOMERULAR FILTRATION RATE > 60.0 (>58); GLUCOSE, FASTING 257 MG/DL (60-100); POTASSIUM SERUM 4.3 MMOL/L (3.5-5.1); SODIUM LEVEL 136 MMOL/L (136-145); TOTAL PROTEIN 6.6 G/DL (5.7-8.2)
== END ==
LOC: M SFHCCLAY 15:10
PROVIDERS: ATTEND Physician Assistant
DX: R10.10 Upper abdominal pain, unspecified (principal)

== ENCOUNTER → 2024-08-23 | Outpatient (CLI) | payer OTHER | LOC: M WHC 10:56 | PROVIDERS: ATTEND Otolaryngology | DX: D44.0 Neoplasm of uncertain behavior of thyroid gland (principal) ==

== ENCOUNTER → 2024-09-07 | Outpatient (REF) | payer OTHER | LOC: M SFHCCLAY 17:12 | PROVIDERS: ATTEND Physician Assistant | DX: R35.1 Nocturia (principal) ==

== ENCOUNTER → 2024-09-22 | Outpatient (REF) | payer OTHER ==
[2024-09-22 17:43] LABS: AMORPHOUS SEDIMENT SMALL (NEGATIVE); APPEARANCE, URINE TURBID (CLEAR); BACTERIA, URINE AUTO 2+ (NEGATIVE); BASO # 0.1 10^3/uL (0.0-0.2); BASO % 0.6 % (0.0-1.0); BILIRUBIN, URINE AUTO NEGATIVE (NEGATIVE); BLOOD, URINE BLOOD NEGATIVE (NEGATIVE); COLOR, URINE AMBER (YELLOW); EOS # 0.3 10^3/uL (0.0-0.5); EOS % 2.2 % (0.0-3.0); GLUCOSE, URINE (UA) AUTO NEGATIVE (NEGATIVE); HEMATOCRIT 49.3 % (36.0-47.0); HEMOGLOBIN 16.7 g/dl (12.0-15.5); KETONE, URINE AUTO TRACE mg/dL (NEGATIVE); LEUKOCYTE ESTERASE, URINE AUTO NEGATIVE (NEGATIVE); LYMPH # 3.3 10^3/uL (1.5-5.0); LYMPH % 26.6 % (24.0-44.0); MEAN CORPUSCULAR HGB CONC 33.9 g/dl (32.0-36.5); MEAN CORPUSCULAR VOLUME 85.6 fl (80.0-96.0); MONO # 0.6 10^3/uL (0.0-0.8); MONO % 5.1 % (2.0-8.0); MUCUS, URINE SMALL (NEGATIVE); NEUTROPHILS # 8.1 10^3/uL (1.5-8.5); NEUTROPHILS % 65.1 % (36.0-66.0); NITRITE, URINE AUTO NEGATIVE (NEGATIVE); PLATELET COUNT, AUTOMATED 313 10^3/uL (150-450); PROTEIN, URINE AUTO NEGATIVE (NEGATIVE); RBC, URINE AUTO 0 /HPF (0-3); RED BLOOD COUNT 5.76 10^6/uL (4.00-5.40); SPECIFIC GRAVITY URINE AUTO 1.029 (1.002-1.035); SQUAMOUS EPITHELIAL CELL UR AU 12 /HPF (0-6); UROBILINOGEN, URINE AUTO 0.2 mg/dL (0.0-2.0); WBC, URINE AUTO 2 /HPF (0-3); WHITE BLOOD COUNT 12.5 10^3/uL (4.0-10.0)
[2024-09-22 18:12] LABS: HEMOGLOBIN A1c 7.5 % (4.0-6.0)
[2024-09-22 18:14] LABS: LIPASE 29 U/L (12-53)
[2024-09-22 18:16] LABS: ALBUMIN 3.6 G/DL (3.2-5.2); ALKALINE PHOSPHATASE 66 U/L (35-104); ALT/SGPT 31 U/L (7.0-40); AST/SGOT 25 U/L (<34); BILIRUBIN,TOTAL 0.7 MG/DL (0.3-1.2); BLOOD UREA NITROGEN 18 MG/DL (9-23); CALCIUM LEVEL 9.2 MG/DL (8.5-10.1); CARBON DIOXIDE LEVEL 24 MMOL/L (20-31); CHLORIDE LEVEL 107 MMOL/L (98-107); CHOLESTEROL LEVEL 106 MG/DL (<200); CHOLESTEROL RISK RATIO 3.95 (<5); CREATININE FOR GFR 0.42 MG/DL (0.55-1.30); GLOMERULAR FILTRATION RATE > 60.0 (>58); GLUCOSE, FASTING 203 MG/DL (60-100); HDL CHOLESTEROL 26.8 MG/DL (>40); LDL CHOLESTEROL 44.8 MG/DL (<100); NON-HDL-C 79.2 MG/DL; POTASSIUM SERUM 5.4 MMOL/L (3.5-5.1); SODIUM LEVEL 136 MMOL/L (136-145); TOTAL PROTEIN 6.7 G/DL (5.7-8.2); TRIGLYCERIDES LEVEL 172 MG/DL (<150)
[2024-09-22 18:18] LABS: FREE T4 1.42 NG/DL (0.89-1.76); THYROID STIMULATING HORMONE 1.147 uIU/ML (0.55-4.78)
== END ==
LOC: M SFHCCLAY 09:39
PROVIDERS: ATTEND Physician Assistant
DX: R10.13 Epigastric pain (principal); E11.9 Type 2 diabetes mellitus without complications; E04.9 Nontoxic goiter, unspecified; L68.0 Hirsutism; N92.0 Excessive and frequent menstruation with regular cycle; F17.200 Nicotine dependence, unspecified, uncomplicated; E66.9 Obesity, unspecified; E78.5 Hyperlipidemia, unspecified; N30.01 Acute cystitis with hematuria

== ENCOUNTER → 2024-10-06 | Outpatient (CLI) | payer OTHER | LOC: M CLY 08:06 | PROVIDERS: ATTEND Physician Assistant | DX: R05.1 Acute cough (principal) ==

== ENCOUNTER → 2024-11-03 | Outpatient (REF) | payer OTHER | LOC: M LAB REF 12:06 | PROVIDERS: ATTEND Surgery | DX: D17.1 Benign lipomatous neoplasm of skin and subcutaneous tissue of trunk (principal) ==

== ENCOUNTER → 2024-12-04 | Outpatient (REF) | payer OTHER ==
[2024-12-05 07:13] LABS: C-PEPTIDE 2.5 ng/mL (0.80-3.85)
[2024-12-05 09:23] LABS: INSULIN TOTAL2 143.6 uIU/mL (<=18.4)
== END ==
LOC: M SFHCCLAY 07:30
PROVIDERS: ATTEND Nurse Practitioner Family
DX: E11.9 Type 2 diabetes mellitus without complications (principal)

== ENCOUNTER → 2025-02-02 | Outpatient (CLI) | payer OTHER | LOC: M RAD 15:26 | PROVIDERS: ATTEND Otolaryngology | DX: E04.1 Nontoxic single thyroid nodule (principal) ==

== ENCOUNTER → 2025-02-07 | Outpatient (REF) | payer OTHER ==
[2025-02-07 13:08] LABS: BASO # 0.1 10^3/uL (0.0-0.2); BASO % 0.4 % (0.0-1.0); EOS # 0.2 10^3/uL (0.0-0.5); EOS % 1.6 % (0.0-3.0); LYMPH # 3.4 10^3/uL (1.5-5.0); LYMPH % 23.1 % (24.0-44.0); MEAN CORPUSCULAR HEMOGLOBIN 27.7 pg (27.0-33.0); MEAN CORPUSCULAR HGB CONC 32.7 g/dl (32.0-36.5); MEAN CORPUSCULAR VOLUME 84.8 fl (80.0-96.0); MONO # 0.7 10^3/uL (0.0-0.8); MONO % 4.6 % (2.0-8.0); NEUTROPHILS # 10.3 10^3/uL (1.5-8.5); PLATELET COUNT, AUTOMATED 293 10^3/uL (150-450); RED BLOOD COUNT 5.78 10^6/uL (4.00-5.40); WHITE BLOOD COUNT 14.7 10^3/uL (4.0-10.0)
[2025-02-07 13:41] LABS: VITAMIN B12 LEVEL 486 PG/ML (211-911)
[2025-02-07 13:42] LABS: IRON (FE) 40 UG/DL (50-170); PERCENT SATURATION 13.5 % (13.2-45.0); THYROID STIMULATING HORMONE 1.498 uIU/ML (0.55-4.78); TOTAL IRON BINDING CAPACITY 296 UG/DL (250-425)
[2025-02-07 13:43] LABS: ALBUMIN 3.6 G/DL (3.2-5.2); ALKALINE PHOSPHATASE 65 U/L (35-104); ALT/SGPT 40 U/L (7.0-40); AST/SGOT 16 U/L (<34); BILIRUBIN,TOTAL 0.6 MG/DL (0.3-1.2); BLOOD UREA NITROGEN 12 MG/DL (9-23); CALCIUM LEVEL 8.8 MG/DL (8.5-10.1); CARBON DIOXIDE LEVEL 26 MMOL/L (20-31); CHLORIDE LEVEL 108 MMOL/L (98-107); CHOLESTEROL LEVEL 97 MG/DL (<200); CHOLESTEROL RISK RATIO 3.73 (<5); CREATININE FOR GFR 0.35 MG/DL (0.55-1.30); FOLATE 7.08 NG/ML (>5.4); GLOMERULAR FILTRATION RATE > 60.0 (>58); GLUCOSE, FASTING 138 MG/DL (60-100); POTASSIUM SERUM 4.5 MMOL/L (3.5-5.1); SODIUM LEVEL 139 MMOL/L (136-145); TOTAL 25(OH) VITAMIN D 19.2 NG/ML (20.0-100.0); TOTAL PROTEIN 6.7 G/DL (5.7-8.2); TRIGLYCERIDES LEVEL 170 MG/DL (<150)
[2025-02-07 13:46] LABS: HEMOGLOBIN A1c 7.6 % (4.0-6.0)
== END ==
LOC: M SFHCCLAY 08:17
PROVIDERS: ATTEND Nurse Practitioner Family
DX: R10.10 Upper abdominal pain, unspecified (principal); E11.9 Type 2 diabetes mellitus without complications; E04.9 Nontoxic goiter, unspecified; L68.0 Hirsutism; N92.0 Excessive and frequent menstruation with regular cycle; F17.200 Nicotine dependence, unspecified, uncomplicated; E66.9 Obesity, unspecified; E78.5 Hyperlipidemia, unspecified

== ENCOUNTER → 2025-03-30 | Outpatient (REF) | payer OTHER | LOC: M SFHCCLAY 12:04 | PROVIDERS: ATTEND Physician Assistant | DX: R30.0 Dysuria (principal) ==

== ENCOUNTER → 2025-08-20 | Outpatient (REF) | payer OTHER ==
[~2025-08-20] MED LIST changes: -IBUP-1022 PO; +IBUP600T42 PO
== END ==
LOC: M SFHCCLAY 14:21
PROVIDERS: ATTEND Physician Assistant
DX: L02.214 Cutaneous abscess of groin (principal)